=== PATIENT | female | born 1980 | race Caucasian/White ===

== ENCOUNTER → 2017-12-05 | Day surgery (SDC) | payer OTHER ==
[2017-12-04 10:13] VITALS: BMI 22.3
[~2017-12-05] MED LIST: KETOROLAC TROMETHAMINE 30 MG/1 ML VIAL IVPUSH ONE; KETOROLAC TROMETHAMINE 30 MG/1 ML VIAL ONE; LACTATED RINGERS SOLUTION 1,000 ML IV SCH; LIDOCAINE HCL 1%, 10 MG/ML (20ML VIAL) INF ONE; LIDOCAINE HCL 1%, 10 MG/ML (20ML VIAL) ONE; MIDAZOLAM HCL 2 MG/2 ML SINGLE DOSE VIAL ONE; ONDANSETRON 4 MG/2 ML VIAL IVPUSH ONE; ONDANSETRON 4 MG/2 ML VIAL IVPUSH PRN; ONDANSETRON 4 MG/2 ML VIAL ONE; PROMETHAZINE HCL 25 MG/1 ML VIAL IVPUSH PRN; PROPOFOL 20 ML ONE; ceFAZolin SODIUM 1 GM VIAL IVPB ONE; ceFAZolin SODIUM 1 GM VIAL ONE; oxyCODONE HCL 5 MG TABLET PO PRN
--- NOTE | 2017-12-05 16:50 | OP ---
DATE OF OPERATION: 12/05/2017 PREOPERATIVE DIAGNOSIS: Right breast atypical lobular hyperplasia. POSTOPERATIVE DIAGNOSIS: Right breast atypical lobular hyperplasia. PROCEDURE: Right breast bracket wire lumpectomy. SURGEON: María Schroeder MD ANESTHESIA: Local with IV sedation. ESTIMATED BLOOD LOSS: Minimal. COMPLICATIONS: None. This was a sterile procedure. INDICATIONS: Patient presented with a routine screening mammography that noted cluster of microcalcifications in the upper outer right breast. She underwent a needle biopsy stereotactically by Imaging, and pathology showed atypical lobular hyperplasia. Recommendation was an excision of the area to make sure there was no further in the lesion. The procedure was discussed with her and all her questions answered. PROCEDURE IN DETAIL: Patient was brought to [facility] in [place], taken down to breast imaging where bracket wires were done by the radiologist, Dr. Lopez, of the wide area of calcifications in the upper outer right breast. The clip was approximately 1-2 cm away from the area of calcifications, so this was not localized. She was then brought to the operating room, and after IV sedation and IV antibiotics, the right breast was prepped and draped in usual sterile fashion. The area in the upper outer right breast was anesthetized with 1% lidocaine without epinephrine. A radial incision was made in the upper outer right breast, and the wires were used to get down to the area of interest. This was excised en bloc and tagged with a long stitch lateral, short stitch superior, sent as a right breast lumpectomy bed. Hemostasis assured with electrocautery. The parenchyma were approximated with interrupted 2-0 Vicryl, skin approximated with interrupted 3-0 Vicryl running and 4-0 Prolene. A sterile dressing with Tegaderm, 4 x 4's applied. The specimen radiograph performed by the radiologist showed multiple areas of calcifications between the 2 wires, with the wire being intact. The clip was also in the specimen. She tolerated the procedure well, was taken to recovery in good condition. MARÍA SCHROEDER M.D. [id number]
[2017-12-05 16:56] VITALS: TEMP 97.8
[2017-12-05 17:53] VITALS: BP 107/62; PULSE 55
--- NOTE | 2017-12-10 18:26 | PATH ---
Surgical Pathology Report Patient Name: FILIBERTO DAILEY [facility]. Rec. #: [id number] /Age/Gender: 1980 (Age: 37) / F Account: [id number] Location: [facility] Taken: 12/05/2017 Received: 12/05/2017 Reported: 12/10/2017 Physicians: María Schroeder M.D. Specimen(s) Received RIGHT BREAST LUMPECTOMY Clinical History Mammographic findings: Microcalcification Final Diagnosis BREAST, RIGHT, LUMPECTOMY: BENIGN BREAST TISSUE WITH PROLIFERATIVE FIBROCYSTIC CHANGES INCLUDING STROMAL FIBROSIS, MICROCYSTS, APOCRINE METAPLASIA, COLUMNAR CELL CHANGE, USUAL DUCTAL HYPERPLASIA, SCLEROSING ADENOSIS, AND ASSOCIATED MICROCALCIFICATIONS. CHANGES OF PRIOR BIOPSY PRESENT. Electronically Signed Ivet Roca M.D. Gross Description Received fresh on an AccuGrid, labeled "right breast lumpectomy," is a 3.8 x 3.8 x 1.4 cm. geiger-yellow, irregular, portion of fibroadipose tissue with a needle localization wire present. There is a short suture marking the superior aspect and a long suture marking the lateral aspect, per the surgeon. There is no skin or nipple present. The specimen is inked as follows: superior and lateral blue; inferior green; medial yellow; anterior red; deep black. The specimen is serially sectioned from lateral to medial. Sectioning reveals diffuse dense white fibrous tissue. There is a focus of hemorrhage identified containing a tobin metallic biopsy clip. No discrete masses are identified. The specimen is entirely and sequentially submitted in 11 cassettes with the lateral margin in cassette 1 and the medial margin in cassette 11 (biopsy clip in cassettes 3 and 5). One full face bisected section each in cassettes 3/4, 5/6, 7/8, /10. Total formalin fixation time: Approximately 6 hours. /12/05/2017 saudi12/05/2017
== END | disposition home or self-care (01) ==
LOC: JASU-SURG 08:53
PROVIDERS: ATTEND Surgery
PROC: 0HBT0ZZ Excision of Right Breast, Open Approach (ICD-10-PCS; principal; 2017-12-05 12:00)
DX: N60.11 Diffuse cystic mastopathy of right breast (principal); N60.21 Fibroadenosis of right breast; N60.81 Other benign mammary dysplasias of right breast
CPT/HCPCS: 19281; 84703; 88307-TC; 94760